=== PATIENT | female | born 1955 | race Caucasian/White ===

== ENCOUNTER 2019-07-06 18:09 | Emergency (ER) | payer BC, OTHER ==
[~2019-07-06] VITALS: Ht 160 cm; Wt 79.4 kg
[2019-07-06 18:18] VITALS: BP 153/78
[2019-07-06 18:41] VITALS: BP 165/86
== END 2019-07-06 19:23 | disposition left against medical advice (07) ==
LOC: MED 18:09
DX: F41.9 Anxiety disorder, unspecified (principal); R20.0 Anesthesia of skin; Z53.21 Procedure and treatment not carried out due to patient leaving prior to being seen by health care provider

== ENCOUNTER 2020-01-21 16:51 | Emergency (ER) | payer OTHER ==
[~2020-01-21] VITALS: Ht 160 cm; Wt 80.3 kg
--- NOTE | 2020-01-21 16:56 | NUR ---
AMBULATED TO BED 11
[2020-01-21 17:02] VITALS: BP 163/89
--- NOTE | 2020-01-21 17:09 | NUR ---
AO X4 64 YR F C/O LT FOREARM W/ HOMEMADE BRACE, LT SHOULDER LT SIDED HEAD/NECK PAIN HEARD A "CRACK" S/P FALL ON A CONCRETE FLOOR 2 DAYS AGO. DENIES LOC, NVD. + ABRASION LT SHOULDER, BL KNEE. SPEAKING FULL AND CLEAR SENTENCES. pt stated she was playing kickball x 2 days ago with her grandson at their driveway. and then when they were done, she was walking up towards the driveway and tripped on the edge of the pavement. HX: LONG EXPOSURE TO [facility] DZ 18 YRS AGO rx: denies.
--- NOTE | 2020-01-21 17:19 | NUR ---
RADIOLOGY AT BEDSIDE
--- NOTE | 2020-01-21 17:50 | NUR ---
PT. BROUGHT TO CT VIA WHEELCHAIR
--- NOTE | 2020-01-21 18:11 | NUR ---
DR SPENCER AT BEDSIDE EVALUATING PATIENT
--- NOTE | 2020-01-21 18:13 | NUR ---
MOLLY BURGESS PLACED SPLINT ON PATIENTS R FOREARM. PT. TOLERATED PROCEDURE WELL. NO FURTHER NEEDS. Addendum: 01/21/20 at 1823 by [facility] PALPABLE RADIAL PULSES. FULL ROM OF AFFECTED DIGITS ON SPLINT. CAPILLARY REFILL < 2 SECONDS.
--- NOTE | 2020-01-21 18:24 | NUR ---
SLING APPLIED ON LEFT ARM BY MOLLY BURGESS. PATIENT TOLERATED PROCEDURE WELL. NO FURTHER NEEDS AT THIS TIME.
--- NOTE | 2020-01-21 18:57 | NUR ---
DR SPENCER D/C PATIENT HOME WITH RX OF NAPROSYN. PT WENT HOME WITH SPLINT AND SLING ON LEFT ARM AND WRIST. CMS INTACT. PALPABLE RADIAL PULSES. CAPILLARY REFILL < 2 SECONDS.
== END 2020-01-21 18:57 | disposition home or self-care (01) ==
LOC: MED 16:51
DX: S52.602A Unspecified fracture of lower end of left ulna, initial encounter for closed fracture (principal); S80.01XA Contusion of right knee, initial encounter; S80.02XA Contusion of left knee, initial encounter; S09.90XA Unspecified injury of head, initial encounter; W18.30XA Fall on same level, unspecified, initial encounter; Y93.89 Activity, other specified; Y92.89 Other specified places as the place of occurrence of the external cause; Y99.8 Other external cause status
CPT/HCPCS: 29515; 70450; 73090; 99284; Q0092

== ENCOUNTER 2021-01-06 16:50 | Emergency (ER) | payer OTHER ==
[~2021-01-06] VITALS: Ht 160 cm; Wt 86.2 kg
[2021-01-06 16:56] VITALS: BP 142/91
[2021-01-06] MEDS ORDERED: ACETAMINOPHEN EXTRA STRENGTH 500 MG TAB PO ONE (17:35)
[2021-01-06 17:50] LABS: APPEARANCE,URINE CLOUDY (CLEAR); BILIRUBIN,URINE NEGATIVE (NEGATIVE); BLOOD, URINE 3+ (NEGATIVE); COLOR,URINE RED (YELLOW); LEUKOCYTE ESTERASE ,URINE 2+ (NEGATIVE); NITRITE, URINE POSITIVE (NEGATIVE); PH,URINE 5.5 (5.0-9.0); UGLUCOSE NEGATIVE (NEGATIVE)
[2021-01-06 17:58] LABS: BASOPHILS # (AUTO) 0.1 K/uL (0.00-0.22); BASOPHILS % (AUTO) 0.6 % (0.0-2.0); EOSINOPHILS # (AUTO) 0.3 K/uL (0-0.4); EOSINOPHILS % (AUTO) 2.2 % (0.0-4.0); LYMPHOCYTES # (AUTO) 2.4 K/uL (2.5-16.5); LYMPHOCYTES % (AUTO) 18.5 % (20.5-51.1); MEAN CORPUSCULAR HEMOGLOBIN 31 pg (27-31); MEAN CORPUSCULAR HGB CONC 34 g/dL (33-37); MEAN CORPUSCULAR VOLUME 90.8 fL (80-94); MONOCYTES # (AUTO) 0.7 K/uL (0.8-1.0); MONOCYTES % (AUTO) 5.1 % (1.7-9.3); NEUTROPHILS # (AUTO) 9.7 K/uL (1.8-7.7); NEUTROPHILS % (AUTO) 73.6 % (42.2-75.2); PLATELET COUNT (AUTO) 249 K/uL (140-450); RED BLOOD CELL COUNT(AUTO) 4.52 MIL/uL (4.20-5.40); RED CELL DISTRIBUTION WIDTH 12.9 % (11.6-13.7); WHITE BLOOD COUNT (AUTO) 13.2 K/uL (4.8-10.8)
[2021-01-06 18:04] LABS: PROTHROMBIN TIME 9.7 secs (10.8-13.4)
[2021-01-06 18:08] LABS: RBC,URINE >100 /HPF (0-5); WBC,URINE 16-25 (MOD) /HPF (0-5)
[2021-01-06 18:09] LABS: ALBUMIN 3.5 g/dL (3.4-5.0); ANION GAP 13.2 (8-16); CARBON DIOXIDE 25.8 mmol/L (21-32); CREATININE 0.8 mg/dL (0.6-1.3); TOTAL BILIRUBIN 0.3 mg/dL (0.0-1.0)
[2021-01-06] MEDS ORDERED: NACL 0.9% 1,000 ML IV ONE (18:15)
[2021-01-06] MEDS ORDERED: KETOROLAC 30 MG/ML VIAL IVP ONE (18:30)
[2021-01-06] MEDS ORDERED: cefTRIAXone 1,000 MG VIAL ONE (18:30)
[2021-01-06] MEDS ORDERED: CEPH500C16 PO (19:28)
[2021-01-06] MEDS ORDERED: HYDR-5080 PO (19:28)
[2021-01-06] MEDS ORDERED: PHEN-1593 PO (19:28)
[2021-01-06] MEDS ORDERED: IBUP-2213 PO (19:29)
[2021-01-06] MEDS ORDERED: HYDROcodone/APAP 7.5/325 MG 1 TAB PO ONE (19:35)
== END 2021-01-06 20:03 | disposition home or self-care (01) ==
LOC: MED 16:50
DX: N12 Tubulo-interstitial nephritis, not specified as acute or chronic (principal); R31.9 Hematuria, unspecified
CPT/HCPCS: 36415; 74176; 80053; 81001; 83690; 85025; 85610; 85730; 87086; 96365; 96375; 99284; J0696; J1885; J7060

== ENCOUNTER 2023-08-30 07:22 | Emergency (ER) | payer OTHER ==
[~2023-08-30] VITALS: Ht 160 cm; Wt 82.1 kg
[~2023-08-30 07:22] MED LIST: CEPH500C16 PO; HYDR-5080 PO; IBUP-2213 PO; PHEN-1593 PO
[2023-08-30 07:32] VITALS: BP 145/88; PULSE 66; RESP 18; TEMP 97.3; O2SAT 98
[2023-08-30] MEDS ORDERED: LIDOCAINE 5% 1 EA PATCH TP ONE (08:15)
[2023-08-30] MEDS ORDERED: ACETAMINOPHEN EXTRA STRENGTH 500 MG TAB PO ONE (08:15)
[2023-08-30 09:01] LABS: BASOPHILS # (AUTO) 0.1 K/uL (0.00-0.22); BASOPHILS % (AUTO) 1.1 % (0.0-2.0); EOSINOPHILS # (AUTO) 0.3 K/uL (0-0.4); EOSINOPHILS % (AUTO) 4.7 % (0.0-4.0); HEMOGLOBIN 14.7 g/dL (12.0-16.0); LYMPHOCYTES # (AUTO) 1.5 K/uL (2.5-16.5); LYMPHOCYTES % (AUTO) 26.2 % (20.5-51.1); MEAN CORPUSCULAR HEMOGLOBIN 31 pg (27-31); MEAN CORPUSCULAR HGB CONC 33 g/dL (33-37); MEAN CORPUSCULAR VOLUME 92.2 fL (80-94); MONOCYTES # (AUTO) 0.6 K/uL (0.8-1.0); MONOCYTES % (AUTO) 10.5 % (1.7-9.3); NEUTROPHILS # (AUTO) 3.3 K/uL (1.8-7.7); NEUTROPHILS % (AUTO) 57.5 % (42.2-75.2); PLATELET COUNT (AUTO) 256 K/uL (140-450); RED BLOOD CELL COUNT(AUTO) 4.77 MIL/uL (4.20-5.40); RED CELL DISTRIBUTION WIDTH 13.3 % (11.6-13.7); WHITE BLOOD COUNT (AUTO) 5.7 K/uL (4.8-10.8)
[2023-08-30 09:10] LABS: APPEARANCE,URINE CLEAR (CLEAR); BILIRUBIN,URINE NEGATIVE (NEGATIVE); BLOOD, URINE 1+ (NEGATIVE); COLOR,URINE YELLOW (YELLOW); LEUKOCYTE ESTERASE ,URINE 1+ (NEGATIVE); NITRITE, URINE NEGATIVE (NEGATIVE); PROTEIN,URINE TRACE (NEGATIVE); UGLUCOSE NEGATIVE (NEGATIVE); UROBILINOGEN,URINE 0.2 EU/dL (0.2 - 1)
[2023-08-30 09:42] LABS: ALBUMIN 3.7 g/dL (3.4-5.0); ANION GAP 12.5 (8-16); CARBON DIOXIDE 25.9 mmol/L (21-32); CREATININE 0.7 mg/dL (0.6-1.3); POTASSIUM 4.4 mmol/L (3.5-5.1); TOTAL BILIRUBIN 0.4 mg/dL (0.0-1.0); TOTAL PROTEIN, SERUM 7.8 g/dL (6.4-8.2)
[2023-08-30 09:56] LABS: BACTERIA,URINE FEW /HPF (None Seen); MUCUS,URINE None Seen /LPF (None Seen); SQUAMOUS EPITHELIAL CELL,UR 0-3 (FEW) /LPF (0-3 (FEW)); YEAST,URINE None Seen /HPF (None Seen)
[2023-08-30 09:57] LABS: TRICHOMONAS,URINE None Seen /HPF (None Seen); WHITE BLOOD CELL CASTS,URINE None Seen /LPF (None Seen)
[2023-08-30] MEDS ORDERED: cefTRIAXone 500 MG in LIDOCAINE MPF 1% 1 ML IM ONE (10:10)
[2023-08-30] MEDS ORDERED: KETOROLAC 30 MG/ML VIAL IM ONE (10:10)
[2023-08-30] MEDS ORDERED: ACET-5636 PO (10:14)
[2023-08-30] MEDS ORDERED: PYR100 PO (10:14)
[2023-08-30] MEDS ORDERED: ACET-10509 PO (10:14)
[2023-08-30] MEDS ORDERED: CEPH-588 PO (10:14)
[2023-08-30] MEDS ORDERED: LIDOCAINE MPF 1% 5 ML ONE (10:17)
[2023-08-30] MEDS ORDERED: cefTRIAXone 500 MG VIAL ONE (10:17)
== END 2023-08-30 10:40 | disposition home or self-care (01) ==
LOC: MED 07:22
DX: N12 Tubulo-interstitial nephritis, not specified as acute or chronic (principal); K76.0 Fatty (change of) liver, not elsewhere classified; I71.9 Aortic aneurysm of unspecified site, without rupture; N28.1 Cyst of kidney, acquired; Z79.899 Other long term (current) drug therapy
CPT/HCPCS: 36415; 74176; 80053; 81001; 83690; 85025; 87086; 96372; 99285; J0696; J1885; J2001